=== PATIENT | male | born 1995 | race Caucasian/White ===

== ENCOUNTER 2020-07-19 14:08 | Emergency (ER) | payer OTHER ==
[~2020-07-19] VITALS: Ht 180.3 cm; Wt 79.5 kg
[2020-07-19 14:26] VITALS: Ht 180.3 cm; Wt 79.5 kg
[2020-07-19] MEDS ORDERED: AMOXICILLIN500 M1 PO (14:36)
[2020-07-19] MEDS ORDERED: ORALONE5 GM TOPICAL (14:38)
== END 2020-07-19 14:43 | disposition home or self-care (01) ==
LOC: D.ER 14:08
DX: K02.9 Dental caries, unspecified (principal)